=== PATIENT | male | born 1990 | race Asian ===

== ENCOUNTER 2018-10-28 20:13 | Emergency (ER) | payer OTHER ==
[~2018-10-28] VITALS: Ht 185.4 cm; Wt 76.9 kg
[2018-10-28 20:21] VITALS: Ht 185.4 cm; Wt 76.9 kg
[2018-10-28] MEDS ORDERED: IBUP-1542 PO (21:58)
[2018-10-28] MEDS ORDERED: PENI500T PO (21:58)
[2018-10-28 22:28] VITALS: BP 127/89; PULSE 61; RESP 19
--- NOTE | 2018-10-30 17:48 | ERD ---
ER Documentation Chief Complaint Chief Complaint ST WITH CONGESTION X4DAYS HPI 28yo M presents with complaint of sore throat x 4 days. Pt notes fever yesterday, but denies cough or runny nose. Pt denies congestion or sputum production, but admits to having to clear his throat more than usual. Pt has been taking dayquil and cough drops without improvement in symptoms. Rates pain as 7/10. Denies any chronic medical conditions. Non-smoker but admits to marijuana use. ROS All systems reviewed and are negative except as per history of present illness. Medications Home Meds Active Scripts Ibuprofen* (Motrin*) 600 Mg Tab, 600 MG PO Q6, #30 TAB Prov:EVER MARLOW PA-C 10/28/18 Penicillin V Potassium* (Penicillin V K*) 500 Mg Tab, 500 MG PO BID for 10 Days, #20 TAB Prov:EVER MARLOW PA-C 10/28/18 Reported Medications [None] No Conflict Check 05/21/10 Allergies Allergies: Coded Allergies: No Known Drug Allergies (Verified Allergy, Mild, 09/04/11) PMhx/Soc History of Surgery: No Anesthesia Reaction: No Hx Neurological Disorder: No Hx Respiratory Disorders: No Hx Cardiac Disorders: No Hx Psychiatric Problems: No Hx Miscellaneous Medical Probl: No Hx Alcohol Use: No Hx Substance Use: Yes (MARIJUANA) Hx Tobacco Use: No Smoking Status: Never smoker FmHx Family History: No diabetes, No coronary disease, No other Physical Exam Vitals Vital Signs Date Temp Pulse Resp B/P (MAP) Pulse Ox O2 O2 Flow FiO2 Time Delivery Rate 10/28/18 61 19 127/89 99 Room Air 22:28 (102) 10/28/18 99.1 89 19 144/73 98 20:21 (96) Physical Exam GEN: Alert and coherent. Well appearing, non-toxic. No acute distress. HEAD: Normocephalic, atraumatic. EYES: EOMI. PERRL. No conjunctival injection. No scleral icterus. No Discharge ENT: Nasal passages patent. Moist mucous membranes. Visible edematous tonsils with exudates bilaterally. No visible drooling. No muffled voice. NECK: Supple. Full range of motion. Trachea midline. Palpable anterior cervical LAD. RESP: No tachypnea. Clear to auscultation bilaterally. No wheezing, rales or rhonchi. No accessory muscle use. CV: Regular rate and rhythm. No murmurs, rubs, or gallops. NEURO: Alert and oriented x3. Appropriate speech, mood and affect. Speech is normal. CN II-XII intact. Moves all extremities equally. Ambulates with a stro ng, steady gait. Procedures/MDM MDM: Patient presented with CC of sore throat on exam *tonsillar erythema, bilateral tonsillar edema and exudate was noted. Centor criteria is as follows: Age range: (3-14 =+1) (15-44 =0) ( =/> 45= -1) Exudate or swelling on tonsils: (no=0) (yes= +1) Tender/swollen anterior cervical lymph nodes: (no=0) (yes = +1) Fever > 100.4: (no = 0) (yes = +1) Cough: (present = 0) (absent = +1) Total score: ___4 based on Centor score, likelihood of strep pharyngitis is high and I will be treating with Penicillin. I suggested use of warm salt water gargles and Cepacol throat lozenges. As well as Tylenol/Motrin for pain or fever control. On exam patient has NO drooling, pooling of secretions, trismus, or vocal changes. They have full ROM in neck, including being able to extend neck back fully without pain. The uvula is midline. At this time I have low suspicion for epiglottitis, retropharyngeal abscess, peritonsillar abscess, meningitis, and sepsis. Patient is stable for discharge home and outpatient management. Advised to follow-up with PCP in 1-2 days. Departure Diagnosis: Primary Impression: Strep pharyngitis Condition: Good Patient Instructions: Strep Throat EVER MARLOW PA-C October 30, 2018 17:48
== END 2018-10-28 22:29 | disposition home or self-care (01) ==
LOC: FTE 20:13
DX: J02.0 Streptococcal pharyngitis (principal)
CPT/HCPCS: 99283